=== PATIENT | female | born 1930 | race African-American/Black ===

== ENCOUNTER 2017-05-05 12:55 | Inpatient (IN) | payer MEDICARE, MEDICAID ==
[~2017-05-05] VITALS: Ht 165.1 cm; Wt 93.9 kg
[~2017-05-05 12:55] MED LIST: AMLO-337 PO; ASPI-1079 PO; ATOR10TA69 PO; LORA0.5T2 PO; TRIA1CAP2 PO
[2017-05-05 15:21] LABS: BASOPHILS % 0.8 % (0.0-2.0); EOSINOPHILS % 3.9 % (0.0-5.0); HEMATOCRIT. 35.3 % (36.0-48.0); HEMOGLOBIN. 11.6 g/dL (12.0-16.0); LYMPHOCYTES % 27.3 % (20.0-50.0); MEAN CORPUSCULAR HEMOGLOBIN 29.8 pg (28.0-32.0); MEAN CORPUSCULAR VOLUME 90.6 fL (81.0-99.0); MEAN PLATELET VOLUME 8.3 fl (7.4-10.4); MONOCYTES % 9.6 % (2.0-8.0); NEUTROPHILS % 58.4 % (40.0-76.0); PLATELET 199 x1000/uL (130-400); RED CELL DISTRIBUTION WIDTH 14.9 % (11.6-14.6)
[2017-05-05 15:27] LABS: INR 1.1; PARTIAL THROMBOPLASTIN TIME 26.5 sec (23.4-31.0); PROTHROMBIN TIME 11.3 sec (9.4-11.6)
[2017-05-05 15:34] LABS: CARBON DIOXIDE 26 mEq/L (21-32); CHLORIDE 110 mEq/L (98-107); TROPONIN I < 0.02 ng/mL (0.00-0.04)
[2017-05-05] MEDS ORDERED: ASPIRIN 325MG EC TABLET PO ONE (17:15)
[2017-05-05] MEDS ORDERED: NITR0.4T49 PO (21:18)
[2017-05-05] MEDS ORDERED: LOSA50TA20 PO (21:18)
[2017-05-05] MEDS ORDERED: PRED1DRO RIGHTEYE (21:18)
[2017-05-05] MEDS ORDERED: OXYB10TA11 PO (21:18)
[2017-05-05] MEDS ORDERED: NAPR220T66 PO (21:18)
[2017-05-05] MEDS ORDERED: MAGN800O PO (21:18)
[2017-05-05] MEDS ORDERED: DOCU-138 PO (21:18)
[2017-05-05] MEDS ORDERED: METO25TA6 PO (21:18)
[2017-05-05 22:00] VITALS: BP 198/85
[2017-05-06] VITALS (7 sets, daily range): BP systolic 138–193; BP diastolic 63–78
[2017-05-06] MEDS ORDERED: IPRATROPIUM/ALBUTEROL 0.5-3(2.5)MG/3ML NEB INH PRN
[2017-05-06] MEDS ORDERED: CLONIDINE 0.1MG TABLET PO PRN
[2017-05-06] MEDS ORDERED: HYDROCODONE/ACETAMINOPHEN 5/325MG TABLET PO PRN
[2017-05-06] MEDS ORDERED: ONDANSETRON HCL 4MG/2ML VIAL IV PRN
[2017-05-06] MEDS ORDERED: GUAIFENESIN 200MG/10ML SUGAR FREE UDC PO PRN
[2017-05-06] MEDS ORDERED: ACETAMINOPHEN 325MG TABLET PO PRN
[2017-05-06] MEDS ORDERED: NAPROXEN SODIUM 220 MG PO PRN (00:15)
[2017-05-06] MEDS ORDERED: DOCUSATE SODIUM 100MG CAPSULE PO PRN (00:15)
[2017-05-06] MEDS ORDERED: MAGNESIUM HYDROXIDE PO PRN (00:15)
[2017-05-06] MEDS ORDERED: NITROGLYCERIN 0.4MG TABLET SL SL PRN (00:15)
[2017-05-06] MEDS ORDERED: MAGNESIUM/ALUMINUM HYDROXIDE/SIMETHICONE 30ML UDC PO PRN (01:30)
[2017-05-06] MEDS ORDERED: NAPROXEN 250MG TABLET PO PRN (01:30)
[2017-05-06 06:28] LABS: BASOPHILS % 0.8 % (0.0-2.0); EOSINOPHILS % 5.4 % (0.0-5.0); HEMATOCRIT. 32.2 % (36.0-48.0); HEMOGLOBIN. 10.9 g/dL (12.0-16.0); LYMPHOCYTES % 31.2 % (20.0-50.0); MEAN CORPUSCULAR HEMOGLOBIN 30.4 pg (28.0-32.0); MEAN CORPUSCULAR VOLUME 89.6 fL (81.0-99.0); MEAN PLATELET VOLUME 8.6 fl (7.4-10.4); NEUTROPHILS % 51.6 % (40.0-76.0); PLATELET 191 x1000/uL (130-400); RED BLOOD CELL COUNT 3.59 mill/uL (4.2-5.4); RED CELL DISTRIBUTION WIDTH 14.7 % (11.6-14.6)
[2017-05-06 07:00] LABS: CARBON DIOXIDE 27 mEq/L (21-32); CHLORIDE 108 mEq/L (98-107); LDL CHOLESTEROL 80 mg/dL (5-100)
[2017-05-06 07:03] LABS: HDL CHOLESTEROL 65 mg/dL (40-59); TROPONIN I < 0.02 ng/mL (0.00-0.04)
[2017-05-06] MEDS: OXYBUTYNIN CHLORIDE 5MG TABLET PO SCH (09:00)
[2017-05-06] MEDS ORDERED: ASPIRIN 81MG EC TABLET PO SCH (09:00)
[2017-05-06] MEDS ORDERED: METOPROLOL TARTRATE 25MG TABLET PO SCH (09:00)
[2017-05-06] MEDS: LOSARTAN POTASSIUM 50 MG TABLET PO SCH (09:42)
[2017-05-06] MEDS: PREDNISOLONE ACETATE 1% OPHTH DROPS 1ML RIGHTEYE SCH (09:44)
[2017-05-06] MEDS ORDERED: PANTOPRAZOLE 40MG DR TABLET PO SCH (13:45)
[2017-05-06] MEDS: DOCUSATE SODIUM 100MG CAPSULE PO PRN (17:29)
[2017-05-06] MEDS ORDERED: [UNRECOGNIZED DRUG - OTHER] PO SCH (21:00)
[2017-05-06] MEDS ORDERED: AMLODIPINE 10MG TABLET PO SCH (21:00)
[2017-05-06] MEDS ORDERED: AMLODIPINE PO SCH (21:00)
[2017-05-06] MEDS ORDERED: ATORVASTATIN CALCIUM 10MG TABLET PO SCH (21:00)
[2017-05-06] MEDS ORDERED: ATORVASTATIN PO SCH (21:00)
[2017-05-07] VITALS: BP 172/64
[2017-05-07 04:00] VITALS: BP 168/69
[2017-05-07 06:00] VITALS: BP 159/66
[2017-05-07 07:37] LABS: BASOPHILS % 0.8 % (0.0-2.0); EOSINOPHILS % 5.9 % (0.0-5.0); HEMATOCRIT. 32.9 % (36.0-48.0); LYMPHOCYTES % 31.5 % (20.0-50.0); MEAN CORPUSCULAR HEMOGLOBIN 30.2 pg (28.0-32.0); MEAN CORPUSCULAR VOLUME 90.1 fL (81.0-99.0); MONOCYTES % 10.9 % (2.0-8.0); NEUTROPHILS % 50.9 % (40.0-76.0); PLATELET 195 x1000/uL (130-400); RED BLOOD CELL COUNT 3.65 mill/uL (4.2-5.4); RED CELL DISTRIBUTION WIDTH 14.5 % (11.6-14.6)
[2017-05-07] MEDS ORDERED: PANTOPRAZOLE 40MG DR TABLET PO SCH (07:40)
[2017-05-07 08:00] VITALS: BP 144/63
[2017-05-07 08:24] LABS: CARBON DIOXIDE 28 mEq/L (21-32); CHLORIDE 110 mEq/L (98-107); TROPONIN I < 0.02 ng/mL (0.00-0.04)
[2017-05-07] MEDS ORDERED: METOPROLOL TARTRATE 25MG TABLET PO SCH (09:00)
[2017-05-07] MEDS: OXYBUTYNIN CHLORIDE 5MG TABLET PO SCH (09:00)
[2017-05-07] MEDS: LOSARTAN POTASSIUM 50 MG TABLET PO SCH (09:11)
[2017-05-07] MEDS: DOCUSATE SODIUM 100MG CAPSULE PO PRN (09:11)
[2017-05-07] MEDS: PREDNISOLONE ACETATE 1% OPHTH DROPS 1ML RIGHTEYE SCH (09:12)
[2017-05-07 12:28] VITALS: BP 155/67
[2017-05-07 13:48] VITALS: BP 155/67
== END 2017-05-07 14:30 | disposition home or self-care (01) | DRG 205 ==
LOC: EDBEDREQ 14:47 → ER 17:33 → 7WST 17:34 → ENRESERV 19:30
PROVIDERS: ADMIT Hospitalist; ATTEND Hospitalist
DX: M94.0 Chondrocostal junction syndrome [Tietze] (principal); E43 Unspecified severe protein-calorie malnutrition; I25.10 Atherosclerotic heart disease of native coronary artery without angina pectoris; I11.9 Hypertensive heart disease without heart failure; Z68.34 Body mass index [BMI] 34.0-34.9, adult; E78.5 Hyperlipidemia, unspecified; I08.1 Rheumatic disorders of both mitral and tricuspid valves; N28.9 Disorder of kidney and ureter, unspecified; Z96.659 Presence of unspecified artificial knee joint; Z88.2 Allergy status to sulfonamides; Z88.0 Allergy status to penicillin
CPT/HCPCS: 36415; 71010; 76856; 80048; 80053; 80061; 83880; 84484; 85025; 85610; 85730; 86850; 86870; 86900; 93005; 93306; 93970; 99285

== ENCOUNTER 2017-09-06 19:43 | Emergency (ER) | payer MEDICARE, MEDICAID ==
[~2017-09-06] VITALS: Ht 160 cm; Wt 87.0 kg
[~2017-09-06 19:43] MED LIST changes: -ATOR10TA69 PO; +DOCU-138 PO; -LORA0.5T2 PO; +LOSA50TA20 PO; +MAGN800O PO; +METO25TA6 PO; +NAPR220T66 PO; +NITR0.4T49 PO; +OXYB10TA11 PO; +PRED1DRO RIGHTEYE; -TRIA1CAP2 PO
[2017-09-06] MEDS ORDERED: SODIUM CHLORIDE 0.9% 1,000 ML IV ONE (22:17)
[2017-09-06] MEDS ORDERED: ASPIRIN 81MG TABLET PO ONE (22:30)
[2017-09-06 22:35] LABS: BASOPHILS % 0.8 % (0.0-2.0); EOSINOPHILS % 2.3 % (0.0-5.0); HEMATOCRIT. 35.9 % (36.0-48.0); LYMPHOCYTES % 26.8 % (20.0-50.0); MEAN PLATELET VOLUME 7.7 fl (7.4-10.4); MONOCYTES % 10.7 % (2.0-8.0); NEUTROPHILS % 59.4 % (40.0-76.0); PLATELET 243 x1000/uL (130-400); RED BLOOD CELL COUNT 3.99 mill/uL (4.2-5.4); RED CELL DISTRIBUTION WIDTH 14.4 % (11.6-14.6)
[2017-09-06 22:41] LABS: PROTHROMBIN TIME 10.7 sec (9.4-11.6)
[2017-09-06 22:50] LABS: CARBON DIOXIDE 24 mEq/L (21-32); CHLORIDE 100 mEq/L (98-107)
[2017-09-06 22:51] LABS: TROPONIN I < 0.02 ng/mL (0.00-0.04)
[2017-09-06 23:16] LABS: CLARITY URINE CLEAR (CLEAR); COLOR URINE YELLOW (YELLOW); KETONES URINE NEGATIVE (NEGATIVE); LEUKOCYTE ESTERASE URINE NEGATIVE (NEGATIVE); NITRITE URINE NEGATIVE (NEGATIVE); OCCULT BLOOD URINE NEGATIVE (NEGATIVE); PH URINE 6.5 (4.5-8.0); PROTEIN URINE TRACE (NEGATIVE); SPECIFIC GRAVITY URINE 1.007 (1.005-1.030); UROBILINOGEN URINE 0.2 E.U./dL (0.2-1.0)
[2017-09-07 01:20] VITALS: BP 154/75
== END 2017-09-07 01:30 | disposition home or self-care (01) ==
LOC: ER 19:43
DX: R10.13 Epigastric pain (principal); R07.89 Other chest pain; K57.30 Diverticulosis of large intestine without perforation or abscess without bleeding; K44.9 Diaphragmatic hernia without obstruction or gangrene; N28.1 Cyst of kidney, acquired; I11.9 Hypertensive heart disease without heart failure; Z79.899 Other long term (current) drug therapy; Z88.0 Allergy status to penicillin; Z88.2 Allergy status to sulfonamides; Z91.041 Radiographic dye allergy status; Z88.7 Allergy status to serum and vaccine
CPT/HCPCS: 36415; 71045; 74176; 80053; 81001; 83880; 84484; 85025; 85610; 93005; 96360; 96361; 99285; J7030